=== PATIENT | male | born 1950 | race Caucasian/White ===

== ENCOUNTER 2018-06-07 09:15 | Inpatient (IN) | payer OTHER ==
[~2018-06-07] VITALS: Ht 152.4 cm; Wt 104.3 kg
[2018-06-07] MEDS ORDERED: LOSARTAN-HCTZ1 EAC1 PO (10:06)
[2018-06-07] MEDS ORDERED: METROPROLOL PO (10:07)
[2018-06-07] MEDS ORDERED: AMLODIPINE BESYL5 MG PO (10:08)
[2018-06-07] MEDS ORDERED: ZOCOR PO (10:09)
[2018-06-07] MEDS ORDERED: XANAX XR0.5 MG PO (10:09)
[2018-06-07] MEDS ORDERED: TAMS0.4C PO (10:09)
== END 2018-06-14 10:52 | disposition home or self-care (01) | DRG 337 ==
LOC: SURH 06-12 06:32 → O/R 06-12 06:32 → SURH 06-12 07:00
PROVIDERS: Colon & Rectal Surgery
PROC: 0WBF0ZZ Excision of Abdominal Wall, Open Approach (ICD-10-PCS; 2018-06-12)
PROC: 0WUF0JZ Supplement Abdominal Wall with Synthetic Substitute, Open Approach (ICD-10-PCS; 2018-06-12)
PROC: 0JX80ZZ Transfer Abdomen Subcutaneous Tissue and Fascia, Open Approach (ICD-10-PCS; 2018-06-12)
PROC: 0DN80ZZ Release Small Intestine, Open Approach (ICD-10-PCS; principal; 2018-06-12 07:00)
DX: C78.6 Secondary malignant neoplasm of retroperitoneum and peritoneum (principal); K43.2 Incisional hernia without obstruction or gangrene; Z85.038 Personal history of other malignant neoplasm of large intestine; C80.1 Malignant (primary) neoplasm, unspecified; K66.0 Peritoneal adhesions (postprocedural) (postinfection)

== ENCOUNTER 2020-02-21 08:51 | Day surgery (SDC) | payer OTHER | END 2020-02-21 16:35 | disposition home or self-care (01) | LOC: AMB-ENDOS 08:51 | PROVIDERS: ATTEND Colon & Rectal Surgery | DX: C20 Malignant neoplasm of rectum (principal); K64.1 Second degree hemorrhoids ==

== ENCOUNTER 2020-03-26 09:45 | Inpatient (IN) | payer OTHER ==
[~2020-03-26] VITALS: Ht 165.1 cm; Wt 108.9 kg
[~2020-03-26 09:45] MED LIST: AMLODIPINE BESYL5 MG PO; LOSARTAN-HCTZ1 EAC1 PO; METROPROLOL PO; TAMS0.4C PO; XANAX XR0.5 MG PO; ZOCOR PO
[2020-04-02] MEDS ORDERED: SIMVASTATIN10 MG PO (08:13)
[2020-04-02] MEDS ORDERED: TOPROL XL50 M1 PO (08:13)
[2020-04-04] MEDS ORDERED: HYOSCYAMINE0.125 M1 SL (11:53)
[2020-04-04] MEDS ORDERED: OXYC1TAB9 PO (11:53)
[2020-04-04] MEDS ORDERED: INTESTINEX680 M1 PO (11:53)
== END 2020-04-04 12:26 | disposition home or self-care (01) | DRG 330 ==
LOC: ADM 09:45 → EDSTATUS 09:45 → SURH 04-01 06:40 → O/R 04-01 06:40 → SURH 04-01 07:00
PROVIDERS: ADMIT Colon & Rectal Surgery; ATTEND Colon & Rectal Surgery
PROC: 07TC0ZZ Resection of Pelvis Lymphatic, Open Approach (ICD-10-PCS; 2020-04-01)
PROC: 0DQM0ZZ Repair Descending Colon, Open Approach (ICD-10-PCS; 2020-04-01)
PROC: 0DTN0ZZ Resection of Sigmoid Colon, Open Approach (ICD-10-PCS; principal; 2020-04-01 07:00)
DX: C19 Malignant neoplasm of rectosigmoid junction (principal); K91.71 Accidental puncture and laceration of a digestive system organ or structure during a digestive system procedure; T81.41XA Infection following a procedure, superficial incisional surgical site, initial encounter; B95.2 Enterococcus as the cause of diseases classified elsewhere; B96.29 Other Escherichia coli [E. coli] as the cause of diseases classified elsewhere; K63.89 Other specified diseases of intestine; R59.0 Localized enlarged lymph nodes; Z20.828 Contact with and (suspected) exposure to other viral communicable diseases

== ENCOUNTER 2020-04-07 23:23 | Inpatient (IN) | payer OTHER ==
[~2020-04-07] VITALS: Ht 165.1 cm; Wt 110.2 kg
[~2020-04-07 23:23] MED LIST changes: +HYOSCYAMINE0.125 M1 SL; +INTESTINEX680 M1 PO; +OXYC1TAB9 PO; +SIMVASTATIN10 MG PO; +TOPROL XL50 M1 PO
--- NOTE | 2020-04-07 23:44 | NUR ---
SE RECIBE PTE,EN SILLA DE CHAGO ALERTTA Y ORIENTADO POR DAWNA Y EN COMPANIA DE [place]IJ[place]. PTE REFIERE LEIDY SIDO OPERADO POR , EN LA CUAL SE LE RETIRO STARR MASA EN EL INTESTINO, EL MIERCOLES PASADO. PTE INDICA PRESENTAR MAS DE 10 EPISODIOS DE VOMITOS Y DOLOR ABDOMINAL DESDE EL LEXY DE HOY.
--- NOTE | 2020-04-08 00:58 | NUR ---
PACIENTE EVALUADO POR MD EN TURNO DR.VALE ANGEL COLOCA ORDEN MEDICA. ORIENTA PACIENTE Y FAMILIAR SOBRE TRATAMIENTO ORDENADO. REFIERE COMPRENDER. COLECTA MUESTRAS DE LABORATORIOS,ROTULA Y ENJVIA PARA ANALISIS. ADMINISTRA MEDICAMENTOS JUNAID ORDEN MEDICA, BAJO MEDIDAS ASEPTICAS. PACIENTE NO PRESENTA REACCION ADVERSA. SE NOTIFICA ESTUDIO DE CT ABD/PELV A PERSONAL EN TUR[place] .
--- NOTE | 2020-04-08 07:12 | NUR ---
PACIENTE ALERTA Y ORIENTADO EN COMPANIA DE FAMILIAR EN CHIP. PACIENTE CON BUEN PATRON RESPIRATORIO Y PIEL TIBIA AL TACTO. SE OBSERVA IVF'S PATENTE MEAGAN DE EDEMA Y ENROJECIMIENTO BAJANDO UN .9NSS @ 175ML/HR. PENDIENTE U/A. SE OBSERVA NGT EN FOSA NASAL LT CONECTADO A SUCCION INTERMITENTE BAJA. PENDIENTE CONSULTA CON DR. ROSS,
[2020-04-13] MEDS ORDERED: LISINOPRIL40 MG (08:59)
[2020-04-13] MEDS ORDERED: METFORMIN HCL500 M4 (08:59)
[2020-04-13] MEDS ORDERED: ATORVASTATIN CA40 MG (09:00)
== END 2020-05-19 14:10 | disposition expired | DRG 329 ==
LOC: ER 23:23 → SEC-K 04-08 14:33 → SURH 04-08 14:33
PROVIDERS: ADMIT Colon & Rectal Surgery; ATTEND Colon & Rectal Surgery
PROC: BW21ZZZ Computerized Tomography (CT Scan) of Abdomen and Pelvis (ICD-10-PCS; 2020-04-08)
PROC: 02HV33Z Insertion of Infusion Device into Superior Vena Cava, Percutaneous Approach (ICD-10-PCS; 2020-04-10)
PROC: 0DH67UZ Insertion of Feeding Device into Stomach, Via Natural or Artificial Opening (ICD-10-PCS; 2020-04-10)
PROC: 3E0G76Z Introduction of Nutritional Substance into Upper GI, Via Natural or Artificial Opening (ICD-10-PCS; 2020-04-10)
PROC: 4A12X4Z Monitoring of Cardiac Electrical Activity, External Approach (ICD-10-PCS; 2020-04-11)
PROC: 30233N1 Transfusion of Nonautologous Red Blood Cells into Peripheral Vein, Percutaneous Approach (ICD-10-PCS; 2020-04-12)
PROC: 4A033R1 Measurement of Arterial Saturation, Peripheral, Percutaneous Approach (ICD-10-PCS; 2020-04-13)
PROC: 0DJ08ZZ Inspection of Upper Intestinal Tract, Via Natural or Artificial Opening Endoscopic (ICD-10-PCS; 2020-04-14)
PROC: BW21ZZZ Computerized Tomography (CT Scan) of Abdomen and Pelvis (ICD-10-PCS; 2020-04-14)
PROC: BW21ZZZ Computerized Tomography (CT Scan) of Abdomen and Pelvis (ICD-10-PCS; 2020-04-22)
PROC: BW21Y0Z Computerized Tomography (CT Scan) of Abdomen and Pelvis using Other Contrast, Unenhanced and Enhanced (ICD-10-PCS; 2020-04-22)
PROC: 0D1L0Z4 Bypass Transverse Colon to Cutaneous, Open Approach (ICD-10-PCS; principal; 2020-04-28 16:00)
PROC: 8E0ZXY6 Isolation (ICD-10-PCS; 2020-05-11)
PROC: BW21ZZZ Computerized Tomography (CT Scan) of Abdomen and Pelvis (ICD-10-PCS; 2020-05-13)
PROC: BW21Y0Z Computerized Tomography (CT Scan) of Abdomen and Pelvis using Other Contrast, Unenhanced and Enhanced (ICD-10-PCS; 2020-05-13)
PROC: 0DB68ZX Excision of Stomach, Via Natural or Artificial Opening Endoscopic, Diagnostic (ICD-10-PCS; 2020-05-15)
PROC: BW28ZZZ Computerized Tomography (CT Scan) of Head (ICD-10-PCS; 2020-05-16)
PROC: 3E0F7GC Introduction of Other Therapeutic Substance into Respiratory Tract, Via Natural or Artificial Opening (ICD-10-PCS; 2020-05-18)
DX: K63.2 Fistula of intestine (principal); J69.0 Pneumonitis due to inhalation of food and vomit; K25.4 Chronic or unspecified gastric ulcer with hemorrhage; G92 Toxic encephalopathy; J96.00 Acute respiratory failure, unspecified whether with hypoxia or hypercapnia; J15.0 Pneumonia due to Klebsiella pneumoniae; J15.1 Pneumonia due to Pseudomonas; J15.5 Pneumonia due to Escherichia coli; K56.690 Other partial intestinal obstruction; F05 Delirium due to known physiological condition; Z85.038 Personal history of other malignant neoplasm of large intestine; Z85.46 Personal history of malignant neoplasm of prostate; K60.4 Rectal fistula; K31.84 Gastroparesis; D50.0 Iron deficiency anemia secondary to blood loss (chronic)